=== PATIENT | male | born 1945 | race Caucasian/White ===

== ENCOUNTER 2020-11-03 02:20 | Emergency (ER) | payer OTHER ==
[~2020-11-03] VITALS: Ht 180.3 cm; Wt 108.9 kg
[~2020-11-03 02:20] MED LIST: ASPIRIN81 MG PO; CARBAMAZEPINE300 MG PO; CELEXA20 MG PO; GLUCOSAMINE CH1 EAC2 PO; LEVOTHYROXINE50 MCG PO; LIPITOR40 MG PO; LISINOPRIL10 MG PO; MECLIZINE HCL25 MG PO; MEDROL4 MG PO; OMEPRAZOLE20 MG PO; VITAMIN D400 UNIT PO; ZOFRAN4 MG PO
--- OUTSIDE RECORDS SUMMARY | 2020-11-03 02:22 | XMS ---
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 Mateo has no Care Guidelines for this patient. Cameron VISIT COUNT (12 MO.) 1 GAVINO Barnes TOTAL 1 NOTE: Visits indicate total known visits. ED/C VISIT TRACKING (12 MO.) 11/03/2020 02:21 GAVINO Aranda OR TYPE: Emergency COMPLAINT: - WEAKNESS,CONFUSION,ALT LOC INPATIENT VISIT TRACKING (12 MO.) No inpatient visits to display in this time frame [email or web address]
[2020-11-03] MEDS ORDERED: CEPHALEXIN500 MG PO (05:27)
[2020-11-03] MEDS ORDERED: ZOFRAN4 MG PO (05:27)
--- NOTE | 2020-11-03 20:59 | EKG ---
[facility] [address] [place] [address] Signed Sinus bradycardia Otherwise normal ECG When compared with ECG of 18-MAR-2018 09:11, No significant change was found Confirmed by FÁTIMA ORTIZ MD ([id number]) on 11/03/2020 8:59:35 PM Electronically Signed By: FÁTIMA ORTIZ MD 11/03/202058 PATIENT NAME: JUNITOEREN JOZEF Electrocardiogram DATE OF : 47 PHYSICIAN: FÁTIMA ORTIZ MD REPORT #: [id number] REPORT IS CONFIDENTIAL AND NOT TO BE RELEASED WITHOUT AUTHORIZATION
== END 2020-11-03 05:53 | disposition home or self-care (01) ==
LOC: ED 02:20
DX: R41.82 Altered mental status, unspecified (principal); N39.0 Urinary tract infection, site not specified; I10 Essential (primary) hypertension; E78.5 Hyperlipidemia, unspecified; E03.9 Hypothyroidism, unspecified; Z79.899 Other long term (current) drug therapy; Z79.82 Long term (current) use of aspirin
CPT/HCPCS: 70450; 71045; 80053; 81001; 85025; 85610; 85730; 87088; 93005; 93010; 96374; 96375; 99285-25; J2060; J2405

== ENCOUNTER 2021-09-19 14:19 | Emergency (ER) | payer OTHER ==
[~2021-09-19] VITALS: Ht 180.3 cm; Wt 109.1 kg
[~2021-09-19 14:19] MED LIST changes: +CEPHALEXIN500 MG PO
== END 2021-09-19 14:54 | disposition home or self-care (01) ==
LOC: ED 14:19
DX: H60.91 Unspecified otitis externa, right ear (principal); I10 Essential (primary) hypertension; E78.5 Hyperlipidemia, unspecified; E03.9 Hypothyroidism, unspecified; Z79.899 Other long term (current) drug therapy; Z79.82 Long term (current) use of aspirin
CPT/HCPCS: 99282

== ENCOUNTER 2024-03-03 11:55 | Emergency (ER) | payer OTHER ==
[~2024-03-03] VITALS: Ht 180.3 cm; Wt 113.9 kg
[2024-03-03 13:54] VITALS: BP 144/79
== END 2024-03-03 13:54 | disposition home or self-care (01) ==
LOC: ED 11:55
DX: R51.9 Headache, unspecified (principal); I10 Essential (primary) hypertension; Z79.890 Hormone replacement therapy; Z79.899 Other long term (current) drug therapy; Z79.82 Long term (current) use of aspirin
CPT/HCPCS: 70450; 99284-25